=== PATIENT | female | born 1980 | race Caucasian/White ===

== ENCOUNTER 2016-10-10 14:40 | Emergency (ER) | payer OTHER ==
[~2016-10-10] VITALS: Ht 172.7 cm; Wt 88.6 kg
[~2016-10-10 14:40] MED LIST: ATIVAN1 MG PO; CHANTIX0.5 MG PO; CLARITIN10 M1 PO; EFFEXOR XR75 MG PO; EFFEXOR50 M1 PO; LAMICTAL200 M1 PO; LYRICA50 MG PO; NAPROSYN500 MG PO; OMEPRAZOLE20 M1 PO; PERCOCET 5/325M1 TAB PO; PERCOCET1 TA4 PO; PREDNISONE20 MG PO; TEMAZEPAM30 MG PO; TRAMADOL HCL50 MG PO; ULTRAM50 MG PO; XANAX0.5 MG PO; ZOFRAN ODT4 MG PO
[2016-10-10 14:57] VITALS: BP 128/80
[2016-10-10] MEDS ORDERED: EFFEXOR XR75 MG PO (15:12)
== END 2016-10-10 15:54 | disposition home or self-care (01) | DRG 103 ==
LOC: ED 14:40
DX: G43.909 Migraine, unspecified, not intractable, without status migrainosus (principal); G40.89 Other seizures; R11.0 Nausea

== ENCOUNTER 2016-10-22 22:56 | Emergency (ER) | payer OTHER ==
[~2016-10-22] VITALS: Ht 172.7 cm; Wt 92.7 kg
[2016-10-22] MEDS ORDERED: TRAMADOL HCL50 MG PO (23:14)
[2016-10-22] MEDS ORDERED: ELAVIL25 MG PO (23:15)
[2016-10-22] MEDS ORDERED: TEMAZEPAM30 MG PO (23:16)
[2016-10-22] MEDS ORDERED: LIPITOR20 MG PO (23:17)
[2016-10-22] MEDS ORDERED: OMEPRAZOLE20 M2 PO (23:18)
[2016-10-22] MEDS ORDERED: LAMICTAL200 M1 PO (23:19)
[2016-10-22] MEDS ORDERED: ABILIFY5 MG PO (23:21)
[2016-10-23 00:06] LABS: HEMATOCRIT 39.2 % (37.0-47.0); HEMOGLOBIN 13.6 g/dl (12.0-16.0); IMMATURE GRANULOCYTES 0.3 % (0.0-1.0); MEAN CELL VOLUME 95.4 fL CALC (80.0-100.0); MEAN CORPUSCULAR HGB 33.1 pG CALC (26.0-32.0); MEAN CORPUSCULAR HGB CONC 34.7 g/L CALC (32.0-36.0); NEUT# 4.27 thou/uL (2.00-7.15); RED BLOOD COUNT 4.11 mill/uL (4.20-5.60); RED CELL DISTRI WIDTH 12.4 % (11.5-15.5)
[2016-10-23 00:19] LABS: ALBUMIN 3.6 g/dL (3.2-5.0); ALKALINE PHOSPHATASE 113 u/l (38-126); ANION GAP 8 (6-22 (CALC)); BILIRUBIN, TOTAL 0.4 mg/dL (0.0-1.4); BUN 7 mg/dL (7-17); BUN/CREATININE RATIO 10 (12-20 (CALC)); CALCIUM 8.6 mg/dL (8.4-10.2); CARBON DIOXIDE 29 mmol/l (22-30); CHLORIDE 104 mmol/l (95-108); CREATININE 0.7 mg/dL (0.5-1.0); GFR > 60 ML/MIN (>=60 (CALC)); GFR FOR AFR.AMER. > 60 ML/MIN (>=60 (CALC)); GLUCOSE 90 mg/dL (65-105); SGOT/AST 19 u/l (14-36); SGPT/ALT 28 u/l (9-52); SODIUM 137 mmol/l (137-146)
[2016-10-23 00:45] VITALS: BP 105/65
[2016-10-23] MEDS ORDERED: FIORICET PO (22:44)
== END 2016-10-23 00:44 | disposition home or self-care (01) | DRG 103 ==
LOC: ED 22:56
PROVIDERS: Emergency Medicine
DX: R51 Headache (principal)

== ENCOUNTER 2016-10-23 19:34 | Emergency (ER) | payer OTHER ==
[~2016-10-23] VITALS: Ht 172.7 cm; Wt 94.4 kg
[~2016-10-23 19:34] MED LIST changes: +ABILIFY5 MG PO; +ELAVIL25 MG PO; +LIPITOR20 MG PO; +OMEPRAZOLE20 M2 PO
[2016-10-23 22:31] LABS: URINE BILIRUBIN - DIPSTICK NEGATIVE (NEGATIVE); URINE BLOOD DIPSTICK NEGATIVE (NEGATIVE); URINE CLARITY CLEAR; URINE COLOR YELLOW; URINE GLUCOSE - DIPSTICK NEGATIVE (NEGATIVE); URINE KETONE NEGATIVE (NEGATIVE); URINE LEUK ESTERASE NEGATIVE (NEGATIVE); URINE NITRITE - DIPSTICK NEGATIVE (Negative); URINE PH 5.5 (4.5-8.0); URINE PROTEIN - DIPSTICK NEGATIVE (NEG-TRACE); URINE UROBILINOGEN - DIPSTICK 0.2 E.U./dL (0.2)
[2016-10-23 22:34] LABS: BARBITURATES NEGATIVE (NEGATIVE); COCAINE NEGATIVE (NEGATIVE); METHADONE NEGATIVE (NEGATIVE); TETRAHYDROCANNABIONOL POSITIVE (NEGATIVE); TRICYLIC ANTIDEPRESSANTS POSITIVE (NEGATIVE)
[2016-10-23 22:35] LABS: OXCYCODONE POSITIVE (NEGATIVE)
[2016-10-23] MEDS ORDERED: FIORICET PO (22:44)
[2016-10-23 23:30] VITALS: BP 122/70
== END 2016-10-23 23:36 | disposition home or self-care (01) | DRG 103 ==
LOC: ED 19:34
PROVIDERS: Emergency Medicine
DX: R51 Headache (principal)

== ENCOUNTER 2016-10-26 15:57 | Emergency (ER) | payer OTHER ==
[~2016-10-26] VITALS: Ht 170.2 cm; Wt 90.9 kg
[~2016-10-26 15:57] MED LIST changes: +FIORICET PO
[2016-10-26] MEDS ORDERED: XANAX0.5 MG PO (16:22)
[2016-10-26] MEDS ORDERED: ULTRAM50 M1 PO (17:37)
[2016-10-26 18:21] VITALS: BP 98/55
== END 2016-10-26 18:21 | disposition home or self-care (01) | DRG 103 ==
LOC: ED 15:57
DX: G43.909 Migraine, unspecified, not intractable, without status migrainosus (principal); F31.9 Bipolar disorder, unspecified; M79.7 Fibromyalgia; F43.10 Post-traumatic stress disorder, unspecified; M06.9 Rheumatoid arthritis, unspecified; G40.909 Epilepsy, unspecified, not intractable, without status epilepticus

== ENCOUNTER 2016-11-30 10:30 | Day surgery (SDC) | payer MEDICAID ==
[~2016-11-30] VITALS: Ht 170.2 cm; Wt 90.3 kg
[~2016-11-30 10:30] MED LIST changes: +ULTRAM50 M1 PO
[2016-11-30 12:41] VITALS: BP 104/62
== END 2016-11-30 12:25 | disposition home or self-care (01) | DRG 392 ==
LOC: ENDO 10:30 → ORM 13:35 → ENDO 13:35 → ORM 17:30
PROVIDERS: ATTEND Internal Medicine Gastroenterology
PROC: 0DB48ZX Excision of Esophagogastric Junction, Via Natural or Artificial Opening Endoscopic, Diagnostic (ICD-10-PCS; principal; 2016-11-30)
PROC: 0DB68ZX Excision of Stomach, Via Natural or Artificial Opening Endoscopic, Diagnostic (ICD-10-PCS; 2016-11-30)
DX: R10.13 Epigastric pain (principal); F32.9 Major depressive disorder, single episode, unspecified; R14.0 Abdominal distension (gaseous); R11.0 Nausea; K21.9 Gastro-esophageal reflux disease without esophagitis; K29.50 Unspecified chronic gastritis without bleeding; K44.9 Diaphragmatic hernia without obstruction or gangrene; K59.00 Constipation, unspecified; M06.9 Rheumatoid arthritis, unspecified; E78.00 Pure hypercholesterolemia, unspecified; F41.9 Anxiety disorder, unspecified; M79.7 Fibromyalgia; Z86.010 Personal history of colon polyps

== ENCOUNTER 2017-01-09 09:59 | Emergency (ER) | payer MEDICAID ==
[~2017-01-09] VITALS: Ht 170.2 cm; Wt 100.0 kg
[2017-01-09] MEDS ORDERED: ALPRAZOLAM0.5 M2 PO (10:18)
[2017-01-09] MEDS ORDERED: PROAIR HFA108 MCG/AC IN (10:20)
[2017-01-09] MEDS ORDERED: ULTRAM50 M1 PO (10:51)
[2017-01-09 11:00] VITALS: BP 121/74
[2017-01-09] MEDS ORDERED: ZOFRAN ODT4 MG PO (11:05)
== END 2017-01-09 11:00 | disposition home or self-care (01) | DRG 563 ==
LOC: ED 09:59
DX: S93.402A Sprain of unspecified ligament of left ankle, initial encounter (principal); X50.1XXA Overexertion from prolonged static or awkward postures, initial encounter; Y93.89 Activity, other specified; Y92.59 Other trade areas as the place of occurrence of the external cause

== ENCOUNTER 2017-08-04 11:25 | Emergency (ER) | payer MEDICAID ==
[~2017-08-04] VITALS: Ht 170.2 cm; Wt 100.0 kg
[~2017-08-04 11:25] MED LIST changes: +ALLERGY RELIEF10 M1 PO; +ALPRAZOLAM0.5 M2 PO; +PROAIR HFA108 MCG/AC IN; +RANITIDINE150 M1 PO
[2017-08-04 12:18] LABS: URINE BILIRUBIN - DIPSTICK NEGATIVE (NEGATIVE); URINE BLOOD DIPSTICK NEGATIVE (NEGATIVE); URINE CLARITY CLEAR; URINE COLOR YELLOW; URINE GLUCOSE - DIPSTICK NEGATIVE (NEGATIVE); URINE KETONE NEGATIVE (NEGATIVE); URINE LEUK ESTERASE NEGATIVE (NEGATIVE); URINE NITRITE - DIPSTICK NEGATIVE (Negative); URINE PH 5.5 (4.5-8.0); URINE PROTEIN - DIPSTICK NEGATIVE (NEG-TRACE); URINE UROBILINOGEN - DIPSTICK 0.2 E.U./dL (0.2)
[2017-08-04 12:25] LABS: BARBITURATES NEGATIVE (NEGATIVE); COCAINE NEGATIVE (NEGATIVE); METHADONE NEGATIVE (NEGATIVE); OXCYCODONE NEGATIVE (NEGATIVE); TETRAHYDROCANNABIONOL NEGATIVE (NEGATIVE); TRICYLIC ANTIDEPRESSANTS NEGATIVE (NEGATIVE)
[2017-08-04] MEDS ORDERED: FLEXERIL PO (14:54)
[2017-08-04] MEDS ORDERED: ULTRAM50 M1 PO (14:54)
[2017-08-04 15:08] VITALS: BP 136/83
== END 2017-08-04 15:08 | disposition home or self-care (01) | DRG 563 ==
LOC: ED 11:25
PROVIDERS: Emergency Medicine
DX: S39.012A Strain of muscle, fascia and tendon of lower back, initial encounter (principal); G89.29 Other chronic pain; X58.XXXA Exposure to other specified factors, initial encounter

== ENCOUNTER 2017-10-24 23:52 | Emergency (ER) | payer MEDICAID ==
[~2017-10-24] VITALS: Ht 170.2 cm; Wt 102.3 kg
[~2017-10-24 23:52] MED LIST changes: +FLEXERIL PO
[2017-10-25] MEDS ORDERED: PHENERGAN25 MG/TAB PO (00:05)
[2017-10-25 00:31] LABS: HEMATOCRIT 44.5 % (37.0-47.0); IMMATURE GRANULOCYTES 0.4 % (0.0-1.0); MEAN CELL VOLUME 95.1 fL CALC (80.0-100.0); MEAN CORPUSCULAR HGB 33.3 pG CALC (26.0-32.0); MEAN CORPUSCULAR HGB CONC 35.1 g/L CALC (32.0-36.0); NEUT# 9.65 thou/uL (2.00-7.15); RED BLOOD COUNT 4.68 mill/uL (4.20-5.60); RED CELL DISTRI WIDTH 12.6 % (11.5-15.5)
[2017-10-25 00:32] LABS: URINE BILIRUBIN - DIPSTICK NEGATIVE (NEGATIVE); URINE BLOOD DIPSTICK NEGATIVE (NEGATIVE); URINE CLARITY CLEAR; URINE COLOR YELLOW; URINE GLUCOSE - DIPSTICK NEGATIVE (NEGATIVE); URINE KETONE NEGATIVE (NEGATIVE); URINE LEUK ESTERASE NEGATIVE (NEGATIVE); URINE NITRITE - DIPSTICK NEGATIVE (Negative); URINE PROTEIN - DIPSTICK NEGATIVE (NEG-TRACE); URINE SPECIFIC GRAVITY 1.015; URINE UROBILINOGEN - DIPSTICK 0.2 E.U./dL (0.2)
[2017-10-25 00:37] LABS: COCAINE NEGATIVE (NEGATIVE); METHADONE NEGATIVE (NEGATIVE); TETRAHYDROCANNABIONOL NEGATIVE (NEGATIVE)
[2017-10-25 00:38] LABS: BARBITURATES NEGATIVE (NEGATIVE); OXCYCODONE NEGATIVE (NEGATIVE); TRICYLIC ANTIDEPRESSANTS NEGATIVE (NEGATIVE)
[2017-10-25 00:39] LABS: HEMOGLOBIN 15.6 g/dl (12.0-16.0)
[2017-10-25 01:04] LABS: ALBUMIN 3.9 g/dL (3.2-5.0); ALKALINE PHOSPHATASE 118 u/l (38-126); ANION GAP 17 (6-22 (CALC)); BILIRUBIN, TOTAL 0.4 mg/dL (0.0-1.4); BUN 10 mg/dL (7-17); BUN/CREATININE RATIO 10 (12-20 (CALC)); CARBON DIOXIDE 23 mmol/l (22-30); CHLORIDE 104 mmol/l (95-108); GFR > 60 ML/MIN (>=60 (CALC)); GFR FOR AFR.AMER. > 60 ML/MIN (>=60 (CALC)); POTASSIUM 3.5 mmol/l (3.5-5.1); SGPT/ALT 62 u/l (9-52); SODIUM 141 mmol/l (137-146); TOTAL PROTEIN 7.1 g/dL (6.3-8.2)
[2017-10-25 01:12] LABS: SGOT/AST 35 u/l (14-36)
[2017-10-25 01:16] LABS: MYOGLOBIN 122 ng/mL (0 - 62)
[2017-10-25 02:17] VITALS: BP 100/67
== END 2017-10-25 02:17 | disposition home or self-care (01) | DRG 103 ==
LOC: ED 23:52
PROVIDERS: Emergency Medicine
DX: R51 Headache (principal); F15.90 Other stimulant use, unspecified, uncomplicated; F17.210 Nicotine dependence, cigarettes, uncomplicated; M79.7 Fibromyalgia; J45.909 Unspecified asthma, uncomplicated; K21.9 Gastro-esophageal reflux disease without esophagitis

== ENCOUNTER 2018-03-07 14:38 | Emergency (ER) | payer MEDICAID ==
[~2018-03-07] VITALS: Ht 170.2 cm; Wt 104.5 kg
[~2018-03-07 14:38] MED LIST changes: +PHENERGAN25 MG/TAB PO
[2018-03-07] MEDS ORDERED: PHENERGAN25 MG RE ×2 (15:16→15:29)
[2018-03-07] MEDS ORDERED: TRAMADOL HCL50 MG PO (15:18)
[2018-03-07 15:33] VITALS: BP 128/57
== END 2018-03-07 15:34 | disposition home or self-care (01) ==
LOC: ED 14:38
DX: R11.0 Nausea (principal); R50.9 Fever, unspecified; K21.9 Gastro-esophageal reflux disease without esophagitis; M79.7 Fibromyalgia

== ENCOUNTER 2019-02-20 19:48 | Emergency (ER) | payer OTHER ==
[~2019-02-20] VITALS: Ht 170.2 cm; Wt 95.0 kg
[~2019-02-20 19:48] MED LIST changes: +PHENERGAN25 MG RE
[2019-02-20 20:33] LABS: BARBITURATES NEGATIVE (NEGATIVE); COCAINE NEGATIVE (NEGATIVE); METHADONE NEGATIVE (NEGATIVE); OXCYCODONE NEGATIVE (NEGATIVE); TETRAHYDROCANNABIONOL POSITIVE (NEGATIVE); TRICYLIC ANTIDEPRESSANTS NEGATIVE (NEGATIVE)
[2019-02-20 20:34] LABS: URINE BILIRUBIN - DIPSTICK SMALL (NEGATIVE); URINE BLOOD DIPSTICK NEGATIVE (NEGATIVE); URINE COLOR YELLOW; URINE GLUCOSE - DIPSTICK NEGATIVE (NEGATIVE); URINE KETONE TRACE mg/dL (NEGATIVE); URINE LEUK ESTERASE NEGATIVE (NEGATIVE); URINE NITRITE - DIPSTICK NEGATIVE (Negative); URINE PROTEIN - DIPSTICK NEGATIVE (NEG-TRACE); URINE SPECIFIC GRAVITY >=1.030; URINE UROBILINOGEN - DIPSTICK 0.2 E.U./dL (0.2)
[2019-02-20] MEDS ORDERED: LAMICTAL XR50 MG PO (20:36)
[2019-02-20 20:38] LABS: ALBUMIN 4.1 g/dL (3.2-5.0); ALKALINE PHOSPHATASE 85 u/l (38-126); ANION GAP 13 (6-22 (CALC)); BILIRUBIN, TOTAL 0.4 mg/dL (0.0-1.4); BUN 12 mg/dL (7-17); BUN/CREATININE RATIO 15 (12-20 (CALC)); CARBON DIOXIDE 26 mmol/l (22-30); CHLORIDE 105 mmol/l (95-108); CREATININE 0.8 mg/dL (0.5-1.0); ETHYL ALCOHOL 0 mg/dl (0-30); GFR > 60 ML/MIN (>=60 (CALC)); GFR FOR AFR.AMER. > 60 ML/MIN (>=60 (CALC)); POTASSIUM 4.2 mmol/l (3.5-5.1); SGOT/AST 22 u/l (14-36); SODIUM 141 mmol/l (137-146); TOTAL PROTEIN 7.1 g/dL (6.3-8.2)
[2019-02-20 20:49] LABS: MYOGLOBIN 23 ng/mL (0 - 62)
[2019-02-20 20:50] LABS: HEMATOCRIT 43.6 % (37.0-47.0); HEMOGLOBIN 15.2 g/dl (12.0-16.0); IMMATURE GRANULOCYTES 0.3 % (0.0-5.0); MEAN CORPUSCULAR HGB 32.4 pG CALC (26.0-32.0); MEAN CORPUSCULAR HGB CONC 34.9 g/L CALC (32.0-36.0); NEUT# 6.11 thou/uL (2.00-7.15); RED BLOOD COUNT 4.69 mill/uL (4.20-5.60); RED CELL DISTRI WIDTH 12.6 % (11.5-15.5)
[2019-02-20] MEDS ORDERED: LAMICTAL100 M1 PO (22:05)
[2019-02-20 22:29] VITALS: BP 108/62
== END 2019-02-20 22:29 | disposition home or self-care (01) ==
LOC: ED 19:48
PROVIDERS: Family Medicine
DX: G40.909 Epilepsy, unspecified, not intractable, without status epilepticus (principal)
CPT/HCPCS: J0131

== ENCOUNTER 2022-05-03 14:35 | Emergency (ER) | payer MEDICAID ==
[~2022-05-03] VITALS: Ht 170.2 cm; Wt 73.0 kg
[~2022-05-03 14:35] MED LIST changes: +LAMICTAL XR50 MG PO; +LAMICTAL100 M1 PO
[2022-05-03 15:09] LABS: HEMOGLOBIN 16.2 g/dl (12.0-16.0); IMMATURE GRANULOCYTES 0.1 % (0.0-5.0); MEAN CELL VOLUME 95.7 fL CALC (80.0-100.0); MEAN CORPUSCULAR HGB CONC 34.5 g/dL CAL (32.0-36.0); NEUT# 4.84 thou/uL (2.00-7.15); RED BLOOD COUNT 4.91 mill/uL (4.20-5.60); RED CELL DISTRI WIDTH 12.6 % (11.5-15.5)
[2022-05-03 15:15] LABS: ALBUMIN 4.4 g/dL (3.2-5.0); ALKALINE PHOSPHATASE 83 u/l (38-126); ANION GAP 21 (6-22 (CALC)); BILIRUBIN, TOTAL 0.4 mg/dL (0.0-1.4); BUN 9 mg/dL (7-17); BUN/CREATININE RATIO 13 (12-20 (CALC)); CARBON DIOXIDE 17 mmol/l (22-30); CHLORIDE 108 mmol/l (95-108); CREATININE 0.8 mg/dL (0.5-1.0); GFR FOR AFR.AMER. > 60 ML/MIN (>=60 (CALC)); GFR OTHER RACES > 60 ML/MIN (>=60 (CALC)); POTASSIUM 3.2 mmol/l (3.5-5.1); SGOT/AST 25 u/l (14-36); SODIUM 143 mmol/l (137-146); TOTAL PROTEIN 7.7 g/dL (6.3-8.2)
[2022-05-03] MEDS ORDERED: POTASSIUM CHLO20 ME1 PO ×2 (17:17→17:38)
[2022-05-03 17:42] VITALS: BP 126/64
== END 2022-05-03 17:43 | disposition home or self-care (01) ==
LOC: ED 14:35
PROVIDERS: Family Medicine
DX: R56.9 Unspecified convulsions (principal); J45.909 Unspecified asthma, uncomplicated; K21.9 Gastro-esophageal reflux disease without esophagitis; F17.200 Nicotine dependence, unspecified, uncomplicated